=== PATIENT | male | born 2000 | race African-American/Black ===

== ENCOUNTER 2023-02-11 19:52 | Emergency (ER) | payer MEDICAID ==
[~2023-02-11] VITALS: Ht 188 cm; Wt 91.0 kg
[2023-02-11 20:07] VITALS: BP 138/88; RESP 18; TEMP 98.5; O2SAT 99
[2023-02-11 20:10] VITALS: PULSE 94
== END 2023-02-11 21:00 | disposition left against medical advice (07) ==
LOC: ER 19:52
DX: R06.02 Shortness of breath (principal); Z88.0 Allergy status to penicillin
CPT/HCPCS: 99281